=== PATIENT | male | born 1955 | race Caucasian/White ===

== ENCOUNTER 2025-02-28 13:00 | Outpatient (AMB) | payer MEDICARE, OTHER, SELFPAY ==
[2025-02-28 13:04] VITALS: BMI 28.9
--- NOTE | 2025-02-28 13:04 | A.PHYSOV_ITS ---
Vital Signs 02/28/25 13:04 Height 5 ft 8 in Weight 190 lb BMI 28.9 Intake Visit Reasons: NPV Jaylon Ref- spinal stenosis Intake Note: Patient is a 69 year old male here for a new patient office visit. Patient has been referred for chronic lower back pain. Solid State Tester Required: No Allergies No Known Allergies Allergy (Verified 02/28/25 13:06) HPI Comments Details: History of Present Illness The patient is a 69 year old male presenting with left-sided buttock and leg pain. He reports the symptoms began approximately 3 months ago, around December, without a specific injury. He describes nerve pain radiating from his left buttock down the back of his leg to his foot, with sensations of needle sticks. The pain is most severe in the morning, rated as an 8-9 out of 10, and improves with rest. Walking can exacerbate the pain, causing a burning sensation in his leg. The patient did have a fall where he tripped over a tree stump, but it was not perceived as a significant event. The patient is an active walker, covering three miles daily. He does not take medications for the pain, stating Tylenol is ineffective and he has a general dislike for medications. He has tried topical creams, patches, and a heating pad without relief. MRI findings were discussed, revealing mild to moderate degenerative disc disease. 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 I reviewed the referring provider's no prior to consultation. Pain Description - Onset: Approximately 3 months ago. - Location: Left side, originating in the buttock and radiating down the back of the leg to the foot. - Quality: Nerve pain described as needle sticks and burning. - Severity: 8-9/10 in the morning. - Exacerbating Factors: Walking. - Relieving Factors: Sitting down, relaxing, and sometimes movement. - Associated symptoms: Sensation of numbness down the leg. Results - MRI: Findings consistent with mild to moderate degenerative disc disease. 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 [facility] Surgical History H/O vasectomy History of cholecystectomy H/O hernia repair Social History (Updated 02/28/25 @ 13:07 by Soha Yee MA) Alcohol intake: current Alcohol intake frequency: does not drink Patient Tobacco Use Status: Never used Tobacco Use of substances other than those prescribed or required for medical reasons: No Review of Systems Narrative Review of Systems - Neurological: Reports left-sided radiating pain from buttock to foot, characterized as needle sticks and burning. - Reports numbness in the leg, particularly with touch. - Denies any right-sided pain. - Musculoskeletal: Reports low back pain/stiffness, especially in the morning and with forward bending. Physical Exam Exam Exam: Physical Exam - Back: Tenderness to palpation over the left buttock. - No tenderness on the right side. - Range of Motion: Lumbar forward flexion elicits some back pain. - Lumbar extension is non-painful. - Neurological: Motor strength is intact in the lower extremities with foot and thigh movements. - Sensation to light touch on the legs is perceived as symmetrical, though the patient notes numbness when touched. - Seated straight leg raise is negative bilaterally. Vital Signs: BMI result Body Mass Index 28.9 Assessment & Plan Assessment & Plan (1) Lumbar radiculopathy: Code(s): M54.16 - Radiculopathy, lumbar region Category: Medical (2) Lumbar spondylosis: Code(s): M47.816 - Spondylosis without myelopathy or radiculopathy, lumbar region Category: Medical Plan Pain Management - Analgesia: The patient currently takes no medication for his pain, reporting that Tylenol is ineffective. - Current Pain level: Pain is rated as an 8-9/10 in the morning. - Activities of Daily Living: The pain interferes with walking, though he generally feels better when moving. - Aberrant Drug-Related Behaviors: None noted; the patient expresses a dislike for medications. Plan Patient was informed and verbally consented to the use of an ambient scribe for clinic note documentation during this visit. 1. Left Sciatica The patient's symptoms of left-sided radiating pain, numbness, and tingling are attributed to nerve compression from moderate left neuroforaminal stenosis at L4-5, as seen on his recent MRI. Various treatment options were discussed, including conservative management, medications, and injections. Given the patient's aversion to medications, a conservative approach will be initiated. A referral for physical therapy will be placed. If physical therapy does not provide adequate relief, the patient can return to discuss proceeding with a cortisone injection. Discussion Notes I explained to the patient that his symptoms of left leg pain, numbness, and tingling are characteristic of nerve pain, likely originating from his back. 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 I discussed several treatment options, including conservative measures like physical therapy, medications such as anti-inflammatories or Gabapentin, and procedural options like a cortisone injection into the spine. I acknowledged his aversion to medications and supported his preference for a more conservative approach. We agreed to begin with physical therapy, and I informed him that if this does not resolve his symptoms, we can then consider a cortisone injection. I encouraged him to continue exercising and moving, as he has found this provides some relief. Patient Instructions - Begin physical therapy to help strengthen your back and relieve the nerve pain. - Continue to stay active and exercise as tolerated, as you have noted that movement helps your symptoms. - You can use a heating pad for comfort. - If physical therapy does not improve your pain, please follow up in the clinic to discuss other options, like a cortisone injection. - No new medications are being prescribed at this time per your preference. Orders: Orders PT Evaluation and Treatment Today M47.816 - Spondylosis without myelopathy or radiculopathy, lumbar region, M54.16 - Radiculopathy, lumbar region Coding Level of Care Code Tele New Pt Level 4 (62016) Diagnoses Lumbar radiculopathy M54.16 Lumbar spondylosis M47.816
--- OUTSIDE RECORDS SUMMARY | 2025-02-28 16:19 | XMS_ITS | Clinical Summary ---
Author Organization [facility] Address [address] [place] [address] Phone Care Team Providers Care Pattern Attendant Name Role Phone Anne Iyer MD Primary Care Provider [phone] Encounters Date Type Department Care Team Description 01/24/2025 11:23 AM EST - 01/24/2025 11:59 PM EST Hospital Encounter [facility] MRI [address] [place] [phone] Radiculopathy Discharge Disposition: Home or Self Care 01/24/2025 10:12 AM EST - 01/24/2025 11:59 PM EST Hospital Encounter [facility] Xray [address] [place] [phone] Radiculopathy, lumbar region Discharge Disposition: Home or Self Care from Last 3 Months Social History Tobacco Use Types Packs/Day Years Used Date Smoking Tobacco: Never Smokeless Tobacco: Never Alcohol Use Standard Drinks/Week Comments Never 0 (1 standard drink = 0.6 oz pur e alcohol) Sex and Gender Information Value Date Recorded Sex Assigned at Not on file Legal Sex Male 10:56 PM EDT Gender Identity Not on file Sexual Orientation Not on file Plan of Treatment Health Maintenance Due Date Last Done Comments Colorectal Cancer Screening: Colonoscopy 1955 Diabetes: Annual Foot Exam 08/25/1963 Diabetes: Annual Retina Eye Exam 08/25/1963 DTaP,Tdap,and Td Vaccines (1 - Tdap) 1972 Pneumococcal Vaccine: 50+ Years (2 of 2 - PCV20 or PCV21) 12/17/2020 12/18/2019 Falls Risk Assessment 05/26/2022 Hepatitis C Screening 05/26/2022 Social Influencers of Health Screening 05/26/2022 Medicare Annual Wellness Visit 09/26/2023 09/25/2022 Depression Screening 03/10/2024 Diabetes: Annual Urine Albumin-Creatinine Ratio (uACR) 09/23/2024 Diabetes: Blood Sugar Control Test (HGBA1C) 03/24/2025 09/21/2024 COVID-19 Vaccine ( season) 2025 12/08/2024, 12/14/2023, 01/19/2023, Additional history exists Diabetes: Annual GFR (Glomerular Filtration Rate) 09/21/2025 09/21/2024 Hypertension/CHF/CAD Annual BMP Blood Test 09/21/2025 09/21/2024 Cholesterol Screening (Lipid Panel) 09/21/2029 09/21/2024 Zoster Vaccines Completed 02/26/2020, 12/25/2019 RSV Immunization Adult Patients Completed 01/28/2024 Influenza Vaccine Completed 12/08/2024, , 01/17/2023, Additional history exists HIB Vaccines Aged Out No longer eligi ble based on patient's age to complete this topic HPV Vaccines Aged Out No longer eligi ble based on patient's age to complete this topic Hepatitis A Vaccines Aged Out No long er eligible based on patient's age to complete this topic Hepatitis B Vaccines Aged Out No long er eligible based on patient's age to complete this topic IPV Vaccines Aged Out No longer eligi ble based on patient's age to complete this topic MMR Vaccines Aged Out No longer eligi ble based on patient's age to complete this topic Meningococcal ACWY Vaccine Aged Out N o longer eligible based on patient's age to complete this topic Meningococcal B Vaccine Aged Out No l onger eligible based on patient's age to complete this topic RSV Immunization Patients Under 20 months Aged Out No longer eligible based on patient's age to complete this topic Varicella Vaccines Aged Out No longer eligible based on patient's age to complete this topic Procedures Procedure Name Priority Date/Time Associated Diagnosis Comments MR LUMBAR SPINE WO CONTRAST Routine 01/24/2025 12:23 PM EST Radiculopathy XR LUMBAR SPINE 4+ VIEWS Routine 01/24/2025 10:25 AM EST Radiculopathy, lumbar region COMPREHENSIVE METABOLIC PANEL Routine 09/21/2024 9:32 AM EDT Routine general medical examination at a health care facility Screening for lipoid disorders Vitamin D deficiency disease Screening for thyroid disorder Screening for diabetes mellitus High risk medications (not anticoagulants) long-term use HEMOGLOBIN A1C Routine 09/21/2024 9:32 AM EDT Routine general medical examination at a health care facility Screening for lipoid disorders Vitamin D deficiency disease Screening for thyroid disorder Screening for diabetes mellitus High risk medications (not anticoagulants) long-term use LIPID PANEL WITH REFLEX TO DIRECT LDL Routine 09/21/2024 9:32 AM EDT Routine general medical examination at a health care facility Screening for lipoid disorders Vitamin D deficiency disease Screening for thyroid disorder Screening for diabetes mellitus High risk medications (not anticoagulants) long-term use from Last 3 Months or Most Recently Relevant to Health Maintenance Results * MR Lumbar Spine wo Contrast (01/24/2025 12:23 PM EST) Anatomical Region Laterality Modality L-spine, Spine Magnetic Resonan ce 01/25/2025 2:44 PM EST Impressions 01/25/2025 2:49 PM EST Mild lumbar dextroscoliosis. 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 Multilevel degenerative changes as detailed above. -------- FINAL REPORT -------- Dictated By: Barrington Joseph Dictated Date: 01/25/2025 14:44 ET Assigned Physician: Barrington Joseph Reviewed and Electronically Signed By: Barrington Joseph Signed Date: 01/25/2025 14:49 ET Workstation ID: [id number] Transcribed By: Self Edit Transcribed Date: 01/25/2025 14:44 ET Narrative 01/25/2025 2:49 PM EST PROCEDURE: MRI of the lumbar spine without contrast. TECHNIQUE: Multiplanar multisequence MRI of the lumbar spine without intravenous contrast administration. HISTORY: radiculopathy COMPARISON: Radiographs dated 01/24/2025. FINDINGS: Normal appearance of the paraspinous soft tissues. Mild Baastrup's disease. No suspicious marrow infiltrative lesion. Scattered Modic endplate changes. Scattered small Schmorl's nodes, most prominent along the superior L4 endplate. 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 Mild dextroscoliosis centered at L2-3. Normal position of the conus at T12. Lumbar disc levels: L1-2: Marked disc space height loss with moderate endplate irregularity and moderate anterior endplate osteophytes. Small symmetric disc osteophyte complex. Minimal bilateral facet arthropathy with slight widening of the right facet joint suggesting mild hypermobility. No significant spinal or foraminal stenosis. L2-3: Moderate disc space height loss and endplate irregularity slightly eccentric to the left. Mild bilateral facet arthropathy. Mild left lateral recess stenosis. Mild left foraminal stenosis. No significant spinal stenosis. L3-4: Moderate posterior predominant disc space height loss and endplate irregularity. Moderate anterior endplate osteophytes. Small symmetric disc osteophyte complex. Moderate bilateral facet arthropathy with mild left sided ligamentum flavum hypertrophy. Mild spinal stenosis with mild bilateral lateral recess stenosis, left greater than right. Mild bilateral foraminal stenosis. L4-5: Mild posterior predominant disc space height loss and endplate irregularity. Small anterior endplate osteophytes. Small symmetric disc osteophyte complex. Moderate bilateral facet arthropathy and ligamentum flavum hypertrophy. Moderate spinal stenosis. Moderate left and mild right foraminal stenosis. L5-S1: Mild endplate irregularity. Small central focal protrusion. Severe right and moderate left facet arthropathy with slight widening of the left facet joint and mild left ligamentum flavum hypertrophy suggesting mild facet joint hypermobility. Moderate right and mild left lateral recess stenosis. Minimal spinal stenosis. Mild right greater than left foraminal stenosis. Procedure Note Barrington Joseph MD - 01/25/2025 PROCEDURE: MRI of the lumbar spine without contrast. TECHNIQUE: Multiplanar multisequence MRI of the lumbar spine withoutintravenous contrast administration. HISTORY: radiculopathy COMPARISON: Radiographs dated 01/24/2025. FINDINGS: Normal appearance of the paraspinous soft tissues. Mild Baastrup's disease. No suspicious marrow infiltrative lesion.Scattered Modic endplate changes. Scattered small Schmorl's nodes, mostprominent along the superior L4 endplate. Mild diffuse congenitalshortening of the lumbar pedicles. Mild dextroscoliosis centered atL2-3. Normal position of the conus at T12. Lumbar disc levels: L1-2: Marked disc space height loss with moderate endplate irregularityand moderate anterior endplate osteophytes. Small symmetric discosteophyte complex. Minimal bilateral facet arthropathy with slightwidening of the right facet joint suggesting mild hypermobility. Nosignificant spinal or foraminal stenosis. L2-3: Moderate disc space height loss and endplate irregularity slightlyeccentric to the left. Mild bilateral facet arthropathy. Mild leftlateral recess stenosis. Mild left foraminal stenosis. No significantspinal stenosis. L3-4: Moderate posterior predominant disc space height loss and endplateirregularity. Moderate anterior endplate osteophytes. Small symmetricdisc osteophyte complex. Moderate bilateral facet arthropathy with mildleft sided ligamentum flavum hypertrophy. Mild spinal stenosis with mildbilateral lateral recess stenosis, left greater than right. Mildbilateral foraminal stenosis. L4-5: Mild posterior predominant disc space height loss and endplateirregularity. Small anterior endplate osteophytes. Small symmetric discosteophyte complex. Moderate bilateral facet arthropathy and ligamentumflavum hypertrophy. Moderate spinal stenosis. Moderate left and mildright foraminal stenosis. L5-S1: Mild endplate irregularity. Small central focal protrusion.Severe right and moderate left facet arthropathy with slight widening ofthe left facet joint and mild left ligamentum flavum hypertrophysuggesting mild facet joint hypermobility. Moderate right and mild leftlateral recess stenosis. Minimal spinal stenosis. Mild right greaterthan left foraminal stenosis. IMPRESSION: Mild lumbar dextroscoliosis. 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 Multilevel degenerative changes as detailed above. -------- FINAL REPORT -------- Dictated By: Barrington Joseph Dictated Date: 01/25/2025 14:44 ET Assigned Physician: Barrington Joseph Reviewed and Electronically Signed By: Barrington Joseph Signed Date: 01/25/2025 14:49 ET Workstation ID: [id number] Transcribed By: Self Edit Transcribed Date: 01/25/2025 14:44 ET Topherlucio Catherine Iyer MD IMG MRI PROCEDURES Final Result * XR Lumbar Spine 4+ Views (01/24/2025 10:25 AM EST) Anatomical Region Laterality Modality Spine, L-spine Radiographic Meredith ging 01/24/2025 10:2 8 AM EST Impressions 01/24/2025 10:31 AM EST No acute findings. 14 degree dextroscoliosis with the apex at L3. Grade 1, 4.2 mm posterior spondylolisthesis of L2 relative to L3 and grade 1, 4.9 mm posterior spondylolisthesis of L3 relative to L4. Degenerative disc disease is present at L1-2 through L4-5. Scattered facet joint disease. Code 67820 -------- FINAL REPORT -------- Dictated By: Chandrakant Burch Dictated Date: 01/24/2025 10:28 ET Assigned Physician: Chandrakant Burch Reviewed and Electronically Signed By: Chandrakant Burch Signed Date: 01/24/2025 10:31 ET Workstation ID: [id number] Transcribed By: Self Edit Transcribed Date: 01/24/2025 10:28 ET Narrative 01/24/2025 10:31 AM EST HISTORY: The patient is a 69-year-old male with chronic low back pain, nontraumatic. FINDINGS: AP, lateral, right and left oblique, and coned-down spot lateral views of the lumbosacral spine are obtained. The study demonstrates 14 degree dextroscoliosis with the apex at the L3 level. There is grade 1, 4.2 mm posterior spondylolisthesis of L2 relative to L3 and grade 1, 4.9 mm posterior spondylolisthesis of L3 relative to L4. No fracture is seen. There is narrowing of the L1-2, L2-3, L3-4, and L4-5 disc spaces, with vacuum phenomenon at L1-2 and L3-4, consistent with degenerative disc disease. Degenerative osteophytes are present throughout the lumbar spine. Mild facet joint disease is scattered throughout. Procedure Note Chandrakant Burch MD - 01/24/2025 HISTORY: The patient is a 69-year-old male with chronic low back pain,nontraumatic. FINDINGS: AP, lateral, right and left oblique, and coned-down spot lateralviews of the lumbosacral spine are obtained. The study demonstrates 14degree dextroscoliosis with the apex at the L3 level. There is grade 1,4.2 mm posterior spondylolisthesis of L2 relative to L3 and grade 1, 4.9mm posterior spondylolisthesis of L3 relative to L4. No fracture is seen.There is narrowing of the L1-2, L2-3, L3-4, and L4-5 disc spaces, withvacuum phenomenon at L1-2 and L3-4, consistent with degenerative discdisease. Degenerative osteophytes are present throughout the lumbar spine.Mild facet joint disease is scattered throughout. IMPRESSION: No acute findings. 14 degree dextroscoliosis with the apex at L3. Grade 1,4.2 mm posterior spondylolisthesis of L2 relative to L3 and grade 1, 4.9mm posterior spondylolisthesis of L3 relative to L4. Degenerative discdisease is present at L1-2 through L4-5. Scattered facet joint disease. Code 13777 -------- FINAL REPORT -------- Dictated By: Chandrakant Burch Dictated Date: 01/24/2025 10:28 ET Assigned Physician: Chandrakant Burch Reviewed and Electronically Signed By: Chandrakant Burch Signed Date: 01/24/2025 10:31 ET Workstation ID: [id number] Transcribed By: Self Edit Transcribed Date: 01/24/2025 10:28 ET us Aquiles Figueroa SALES REPRESENTATIVE IMG XR PROCEDURES Final Resul t * Lipid panel with reflex to direct LDL (09/21/2024 9:32 AM EDT) Cholesterol 130 0 - 200 mg/dL LAB CHEMISTRY METHOD 09/21/2024 12:27 PM EDT [facility] Triglycerides 71 0 - 150 mg/dL LAB CHEMISTRY METHOD 09/21/2024 12:27 PM EDT [facility] HDL 53 >=40 mg/dL LAB CHEMISTRY METHOD 09/21/2024 12:27 PM EDT [facility] LDL Calculated 63 0 - 100 mg/dL LAB CHEMISTRY METHOD 09/21/2024 12:27 PM EDT [facility] VLDL Cholesterol Kamlesh 14.2 mg/dL LAB CHEMISTRY METHOD 09/21/2024 12:27 PM EDT [facility] Non HDL Chol. (LDL+VLDL) 77 <145 mg/dL LAB CHEMISTRY METHOD 09/21/2024 12:27 PM EDT [facility] Chol/HDL Ratio 2.5 0.0 - 4.4 LAB CHEMISTRY METHOD 09/21/2024 12:27 PM EDT [facility] Blood Venous blood specimen / Unknown Venipuncture / Unknown 09/21/2024 9:32 AM EDT 09/21/2024 10:44 AM EDT Aquiles Figueroa NP LAB BLOOD ORDERABLES Final Re sult Performing Organization Address City/[facility]/ZIP Co de Phone Number [facility] [address] [place] [address], [place] [phone] * (ABNORMAL) Hemoglobin A1c (09/21/2024 9:32 AM EDT) Hemoglobin A1C 6.6(H) <6.5 % LAB CHEMISTRY METHOD 09/21/2024 1:31 PM EDT [facility] Mean Bld Glu Estim. 143 mg/dL LAB CHEMISTRY METHOD 09/21/2024 1:31 PM EDT [facility] Blood Venous blood specimen / Unknown Venipuncture / Unknown 09/21/2024 9:32 AM EDT 09/21/2024 10:47 AM EDT us Aquiles Figueroa NP LAB BLOOD ORDERABLES Final Re sult Performing Organization Address [facility]/ZIP Co de Phone Number [facility] [address] [place] [address], [place] [phone] * (ABNORMAL) Comprehensive metabolic panel (09/21/2024 9:32 AM EDT) Sodium 141 133 - 145 mmol/L LAB CHEMISTRY METHOD 09/21/2024 12:27 PM [facility] Potassium 4.2 3.5 - 5.5 mmol/L LAB CHEMISTRY METHOD 09/21/2024 12:27 PM [facility] Chloride 110 96 - 110 mmol/L LAB CHEMISTRY METHOD 09/21/2024 12:27 PM [facility] CO2 26 21 - 32 mmol/L LAB CHEMISTRY METHOD 09/21/2024 12:27 PM [facility] Anion Gap 5 3 - 11 LAB CHEMISTRY METHOD 09/21/2024 12:27 PM [facility] Glucose 117(H) 70 - 100 mg/dL LAB CHEMISTRY METHOD 09/21/2024 12:27 PM [facility] BUN 23 5 - 25 mg/dL LAB CHEMISTRY METHOD 09/21/2024 12:27 PM [facility] Creatinine 1.19 0.70 - 1.30 mg/dL LAB CHEMISTRY METHOD 09/21/2024 12:27 PM [facility] eGFR 65 >=60 mL/min/1. 73m2 LAB CHEMISTRY METHOD 09/21/2024 12:27 PM [facility] Comment:Calculation based on the Chronic Kidney Disease Epidemiology Collaboration (CKD-EPI) equation refit without adjustment for race. BUN/Creatinine Ratio 19.3 LAB CHEMISTRY METHOD 09/21/2024 12:27 PM [facility] Calcium 9.3 8.5 - 10.5 mg/dL LAB CHEMISTRY METHOD 09/21/2024 12:27 PM [facility] AST (SGOT) 18 10 - 42 unit/L LAB CHEMISTRY METHOD 09/21/2024 12:27 PM [facility] ALT (SGPT) 28 10 - 60 unit/L LAB CHEMISTRY METHOD 09/21/2024 12:27 PM EDT [facility] Alkaline Phosphatase 64 42 - 121 unit/L LAB CHEMISTRY METHOD 09/21/2024 12:27 PM EDT [facility] Total Protein 6.8 6.0 - 8.0 g/dL LAB CHEMISTRY METHOD 09/21/2024 12:27 PM EDT [facility] Albumin 4.3 3.2 - 5.0 g/dL LAB CHEMISTRY METHOD 09/21/2024 12:27 PM EDT [facility] Total Bilirubin 0.4 0.0 - 1.4 mg/dL LAB CHEMISTRY METHOD 09/21/2024 12:27 PM EDT [facility] Blood Venous blood specimen / Unknown Venipuncture / Unknown 09/21/2024 9:32 AM EDT 09/21/2024 10:44 AM EDT us Aquiles Figueroa NP LAB BLOOD ORDERABLES Final Re sult [facility] [address] [place] [address], from Last 3 Months or Most Recently Relevant to Health Maintenance Insurance MEDICARE [facility] Care Teams Pattern Attendant Relationship Specialty Start Date End Date Anne Iyer MD [address] [place] [address] [id number] PCP - General Internal Medicine 09/21/24
--- OUTSIDE RECORDS SUMMARY | 2025-02-28 16:19 | XMS_ITS ---
Author Name [facility] Organization Unknown History of Medication Use Medication Directions Dispensed Refills Start Date End Date Stat us ciprofloxacin-dexAME THasone (CIPRODEX) 0.3-0.1 % otic suspension Administer 4 drops into both ears 2 (two) times a day. 02/16/2024 02/24/2024 active amLODIPine-benazepri l (LOTREL) 5-10 mg per capsule TAKE 1 CAPSULE BY MOUTH EVERY DAY for 90 active metFORMIN (GLUCOPHAGE) 500 MG tablet 1 tablet with a meal Orally twice a day for 90 days active Multiple Vitamins-Minerals (Multi Complete) Cap Take by mouth. active omega-3 fatty acids (FISH OIL) 1000 MG Cap capsule 1 capsule. active simvastatin (ZOCOR) 20 MG tablet TAKE 1 TABLET BY MOUTH EVERY DAY IN THE EVENING for 90 active tamsulosin (FLOMAX) 0.4 MG capsule TAKE 1 CAPSULE BY MOUTH EVERY DAY for 90 active Problems Problem Status Onset Date Problem Type Date of Resolution Source Sensorineural hearing loss, bilateral active EncounterDiagnosisAct [facility] Acute diffuse otitis externa of left ear active EncounterDiagnosisAct [facility] Immunizations Vaccine Date Source Lot Number Status Influenza High-Dose Quadriva lent,(FLUZONE HIGH-DOSE), Perservative Free IM 0.7 mL 65 years and older 01/13/2021 [id number] completed Encounters Encounter Type Encounter Reason Primary Diagnosis Location Date Ambulatory Hearing Loss Hearing Loss [facility] 03/15/2024 Ambulatory Diffuse otitis externa, left ear Diffuse otitis externa, left ear [facility] 02/16/2024 Ambulatory [facility] 01/06/2024 Care Team Organization Name Specialty Phone Email Start Date End Da te [facility] 07/03/2024 [facility] 04/11/2024 [facility] 02/19/2024 05/26/2024 [facility] 02/16/2024 [facility] 01/22/2024 [facility] 09/25/2023 [facility] 02/19/2023 [facility] 07/15/2022
--- OUTSIDE RECORDS SUMMARY | 2025-02-28 16:19 | XMS_ITS | Patient Health Record ---
Author Organization [facility] [address] Address [address] [place] [address] Care Team Providers Care Export Sales Assistant Name Role Phone BAPTISTE, CELSOPRECIOUS Primary Care Provider YANICK HERNANDEZ Unavailable [phone] Allergies No Known Allergies Results Component Value Reference Range Flag Notes URINALYSIS WITH REFLEX MICRO SCOPIC Reviewed date:09/21/2024 12:20:37 PM Interpretation: Performing Lab: Notes/Report: Specific [place] Urine 1.021 1.003-1.030 pH, Urine 5.5 5.0-8.0 pH Leukocytes, Urine Negative Negative Nitrite, Urine Negative Negative Protein, Urine Negative <=Trace mg/dL Glucose, Urine Negative Negative mg/dL Ketones, Urine Negative Negative mg/dL Urobilinogen, Urine 0.2 0.2-1.0 mg/dL Bilirubin, Urine Negative Negative Blood, Urine Negative Negative HEMOGLOBIN A1C Reviewed date:09/21/2024 02:02:27 PM Interpretation: Performing Lab: Notes/Report: Hemoglobin A1C 6.6 <6.5 % H Mean Bld Glu Estim. 143 THYROID STIMULATING HORMONE WITH REFLEX TO FREE T4 AND FREE T3 Reviewed date:09/21/2024 01:08:55 PM Interpretation: Performing Lab: Notes/Report: TSH 1.38 0.40-4.00 mcIU/mL COMPREHENSIVE METABOLIC PANE L Reviewed date:09/21/2024 12:46:32 PM Interpretation: Performing Lab: Notes/Report: Sodium 141 133-145 mmol/L Potassium 4.2 3.5-5.5 mmol/L Chloride 110 96-110 mmol/L CO2 26 21-32 mmol/L Anion Gap 5 3-11 Glucose 117 70-100 mg/dL H BUN 23 5-25 mg/dL Creatinine 1.19 0.70-1.30 mg/dL eGFR 65 >=60 mL/min/1.73m2 Calcul ation based on the Chronic Kidney Disease Epidemiology Collaboration (CKD-EPI) equation refit without adjustment for race. BUN/Creatinine Ratio 19.3 Calcium 9.3 8.5-10.5 mg/dL AST (SGOT) 18 10-42 unit/L ALT (SGPT) 28 10-60 unit/L Alkaline Phosphatase 64 42-121 unit/L Total Protein 6.8 6.0-8.0 g/dL Albumin 4.3 3.2-5.0 g/dL Total Bilirubin 0.4 0.0-1.4 mg/dL VITAMIN D 25 HYDROXY Reviewed date:09/21/2024 01:08:55 PM Interpretation: Performing Lab: Notes/Report: Vit D, 25-Hydroxy 42.5 30.0-80.0 ng/mL LIPID PANEL WITH REFLEX TO D IRECT LDL Reviewed date:09/21/2024 12:46:32 PM Interpretation: Performing Lab: Notes/Report: Cholesterol 130 0-200 mg/dL Triglycerides 71 0-150 mg/dL HDL 53 >=40 mg/dL LDL Calculated 63 0-100 mg/dL VLDL Cholesterol Kamlesh 14.2 Non HDL Chol. (LDL+VLDL) 77 <145 mg/dL Chol/HDL Ratio 2.5 0.0-4.4 CBC WITH AUTO DIFFERENTIAL Reviewed date:09/21/2024 12:20:37 PM Interpretation: Performing Lab: Notes/Report: WBC 6.5 4.8-10.8 K/mcL RBC 4.50 4.50-5.50 M/mcL Hemoglobin 13.9 13.5-17.5 g/dL Hematocrit 41.8 42.0-54.0 % L MCV 92.9 79.0-98.0 FL MCH 30.9 27.0-32.0 pcg MCHC 33.3 32.0-37.0 g/dL RDW 13.3 11.0-15.0 % Platelets 245 130-400 K/mcL MPV 10.5 7.0-11.0 FL NRBC 0.0 <1.0 % NRBC Absolute 0.00 <0.10 K/mcL Neutrophils Relative 67.5 Lymphocytes Relative 22.8 Monocytes Relative 7.3 Eosinophils Relative 1.6 Basophils Relative 0.5 Immature Granulocytes Relative 0.3 Neutrophils Absolute 4.36 1.50-7.00 K/mcL Lymphocytes Absolute 1.47 1.00-5.00 K/mcL Monocytes Absolute 0.47 0.20-1.00 K/mcL Eosinophils Absolute 0.10 0.00-0.50 K/mcL Basophils Absolute 0.03 0.00-0.20 K/mcL Immature Granulocytes Absolute 0.02 0.00-0.03 K/mcL MR LUMBAR SPINE WO CONTRAST Reviewed date:01/26/2025 11:33:15 AM Interpretation: Performing Lab: Notes/Report: See Note [facility], a member of [employer] PROCEDURE: MRI of the lumbar spine without [...] Mild right greater than left foraminal stenosis. IMPRESSION: Mild lumbar dextroscoliosis. 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 Multilevel degenerative changes as detailed above. -------- FINAL REPORT -------- Dictated By: Barrington Joseph Dictated Date: 01/25/2025 14:44 ET Assigned Physician: Barrington Joseph Reviewed and Electronically Signed By: Barrington Joseph Signed Date: 01/25/2025 14:49 ET Workstation ID: [id number] Transcribed By: Self Edit Transcribed Date: 01/25/2025 14:44 ET XR LUMBAR SPINE 4+ VIEWS Reviewed date:01/24/2025 11:29:18 AM Interpretation: Performing Lab: Notes/Report: See Note [facility], a member of [employer] HISTORY: The patient is a 69-year-old male [...] Mild facet joint disease is scattered throughout. IMPRESSION: No acute findings. 14 degree dextroscoliosis with the apex at L3. Grade 1, 4.2 mm posterior spondylolisthesis of L2 relative to L3 and grade 1, 4.9 mm posterior spondylolisthesis of L3 relative to L4. Degenerative disc disease is present at L1-2 through L4-5. Scattered facet joint disease. Code 87950 -------- FINAL REPORT -------- Dictated By: Chandrakant Burch Dictated Date: 01/24/2025 10:28 ET Assigned Physician: Chandrakant Burch Reviewed and Electronically Signed By: Chandrakant Burch Signed Date: 01/24/2025 10:31 ET Workstation ID: [id number] Transcribed By: Self Edit Transcribed Date: 01/24/2025 10:28 ET PPC Hemoglobin A1C Reviewed date:01/24/2025 02:48:12 PM Interpretation:6.4% Performing Lab: Notes/Report: 6.4% Reason For Referral Reason Pt needing referral He has multilevel degenerative changes stenosis and some disc issues Diagnosis 1 Spinal stenosis, uns pecified spinal region (M48.00) Referral Organization [facility] [address] Referring Provider First Name SUSANNAH Referring Provider Last Name EMILE Referring Provider Speciality Internal M edicine Referred Provider Alejandro Romero Referred Provider Specialty Physiotherap y General Notes Alejandro Romero Physioth erapy , phone - [phone], , fax- [phone] Clinical Notes Katherine Quinteros 02/01 09:54:42 AM EST >, faxed with x-ray and MRI results, Aminah Adame 02/17/2025 01:11:51 PM EST > Scheduled for 02/28 at 1 pm. pt aware Referral Priority Routine Medications Medication SIG (Take, Route, Frequency, Duration) Notes Start Date End Date Status Farxiga 5 MG Tablet 1 tablet Orally Once a day; Duration: 90 days 05/20/2024 Not-Takin g metFORMIN HCl 500 MG Tablet 1 tablet with a meal Orally twice a day; Duration: 90 days 01/21/2025 Active Fish Oil 1000 MG Capsule 1 capsule Orall y once daily Not-Taking Tamsulosin HCl 0.4 MG Capsule TAKE 1 CAPSULE BY MOUTH EVERY DAY; Duration: 90 Active Multi Complete - Capsule as directed Orally Not-Taking metFORMIN HCl 500 MG Tablet TAKE 1 TABLET BY MOUTH TWICE A DAY WITH MEALS; Duration: 90 Active amLODIPine Besy-Benazepril HCl 5-10 MG Capsule TAKE 1 CAPSULE BY MOUTH EVERY DAY; Duration: 90 Active Simvastatin 20 MG Tablet TAKE 1 TABLET B Y MOUTH EVERY DAY IN THE EVENING; Duration: 90 Active Immunizations Vaccine Route Administration Date Status Comme nts Influenza, high dose seasonal Unknown 01/13/2021 Admini stered Pfizer Covid-19 Vaccine Unknown 02/03/2021 Administered Social History Tobacco Use: Social History Observation Description Date Details (start date - stop date) Never Smoker NA - NA Social History Drugs/Alcohol: Social Info Question Answer Notes Drugs Have you used drugs other than those for medical reasons in the past 12 months? No Tobacco Use: Social Info Question Answer Notes Tobacco Use/Smoking Are you a nonsmoker Additional Details Category Social Info Options Details Drugs/Alcohol: Do you smoke marijuana? De nies Do you drink alcohol? No Problems Problem Type SNOMED Code ICD Code Onset Dates Problem Status W/U Status Risk Notes Problem Information temporarily unavailable Type 2 diabetes mellitus without complications (E11.9) Active confirmed Problem Information temporarily unavailable Other obesity due to excess calories (E66.09) Active confirmed Problem Information temporarily unavailable Hyperlipidemia, unspecified (E78.5) Active confirmed Problem Information temporarily unavailable Essential (primary) hypertension (I10) Active confirmed Problem Information temporarily unavailable Gastro-esophageal reflux disease without esophagitis (K21.9) Active confirmed Problem Information temporarily unavailable Encounter for screening for lipoid disorders (Z13.220) Active confirmed Problem Information temporarily unavailable Type 2 diabetes mellitus without complications (E11.9) Active confirmed Problem Information temporarily unavailable Hyperlipidemia, unspecified (E78.5) Active confirmed Problem Information temporarily unavailable Essential (primary) hypertension (I10) Active confirmed Problem Information temporarily unavailable Benign prostatic hyperplasia without lower urinary tract symptoms (N40.0) Active confirmed Problem Information temporarily unavailable Adult general medical exam (Z00.00) Active confirmed Problem Information temporarily unavailable Hypothyroidism, unspecified type (E03.9) Active confirmed Problem Information temporarily unavailable Vitamin D deficiency (E55.9) Active confirmed Problem Information temporarily unavailable Spinal stenosis, unspecified spinal region (M48.00) Active confirmed Problem Information temporarily unavailable Diabetes mellitus screening (Z13.1) Active confirmed Problem Information temporarily unavailable Body mass index [BMI] 31.0-31.9, adult (Z68.31) Active confirmed Problem Information temporarily unavailable Avitaminosis D (E55.9) Active confirmed Problem Information temporarily unavailable Encounter for screening for endocrine disorder (Z13.29) Active confirmed Problem Information temporarily unavailable Non-recurrent acute suppurative otitis media of left ear without spontaneous rupture of tympanic membrane (H66.002) Active confirmed Problem Information temporarily unavailable Left lumbar radiculopathy (M54.16) Active confirmed Problem Information temporarily unavailable Sensorineural hearing loss (SNHL) of left ear with unrestricted hearing of right ear (H90.42) Active confirmed Vital Signs Heart Rate 94 /min 01/24/2025 Oximetry 99 % 01/24/2025 Blood pressure diastolic 80 mm Hg 01/24/2025 Height 66 in 01/24/2025 Blood pressure systolic 132 mm Hg 01/24/2025 Weight 191 lbs 01/24/2025 BMI 30.82 kg/m2 01/24/2025 Encounters Encounter Location Date Provider Diagnosis [facility] [address] [place] [address] 05/28/2024 YANICK HERNANDEZ [facility] [address] [facility] [address] [place] [address] 06/08/2024 SUSANNAH BAPTISTE [facility] [address] [place] [address] 01/24/2025 YANICKVICKI HERNANDEZ [facility] [address] [place] [address] 01/24/2025 SUSANNAH BAPTISTE Left lumbar radiculopathy M54.[address] [facility] [address] [place] [address] 01/31/2025 YANICK HERNANDEZ [facility] [address] [place] [address] 05/20/2024 YANICK HERNANDEZ Essential (primary) hypertension I10 ; Hyperlipidemia, unspecified E78.5 ; Type 2 diabetes mellitus without complications E11.9 ; Other obesity due to excess calories E66.09 ; Body mass index [BMI] 31.0-31.9, adult Z68.31 ; Benign prostatic hyperplasia without lower urinary tract symptoms N40.0 ; Otalgia, left ear H92.02 and Sensorineural hearing loss (SNHL) of left ear with unrestricted hearing of right ear H90.42 [facility] [address] [place] [address] 09/21/2024 YANICK HERNANDEZ Essential (primary) hypertension I10 ; Hyperlipidemia, unspecified E78.5 ; Type 2 diabetes mellitus without complications E11.9 ; Other obesity due to excess calories E66.09 ; Body mass index [BMI] 31.0-31.9, adult Z68.31 ; Benign prostatic hyperplasia without lower urinary tract symptoms N40.0 ; Otalgia, left ear H92.02 ; Sensorineural hearing loss (SNHL) of left ear with unrestricted hearing of right ear H90.42 and Encounter for examination of blood pressure without abnormal findings Z01.30 [facility] [address] [place] [id number] 01/24/2025 YANICK HERNANDEZ Annual physical exam Z00.00 ; Encounter for screening for depression Z13.31 ; Encounter for screening for other disorder Z13.89 ; Advanced directives, counseling/discussion Z71.89 ; Essential (primary) hypertension I10 ; Hyperlipidemia, unspecified E78.5 ; Type 2 diabetes mellitus without complications E11.9 ; Other obesity due to excess calories E66.09 ; Body mass index [BMI] 31.0-31.9, adult Z68.31 ; Benign prostatic hyperplasia without lower urinary tract symptoms N40.0 ; Sensorineural hearing loss (SNHL) of left ear with unrestricted hearing of right ear H90.42 and Left lumbar radiculopathy M54.16 Assessments Encounter Date Diagnosis (ICD Code) Assessment Notes Treatment Notes Treatment Clinical Notes Section Notes 05/20/2024 Essential (primary) hypertension (ICD-10 - I10) Acute Concerns/Problem List: 05/20/2024 A1c today is 6.4, discussed switching from Metformin to Farxiga. For cardio and renal protection _update labs prior to next visit Of note, some information is being carried forward from prior records for informational purposes only and is being cited so that efficiency, safety and quality of the patient's care is not compromised This note was prepared using voice recognition software and direct typing Please excuse inadvertent med peds or typing errors, or uncorrected word substitutions Although every attempt has been made by the provider to proofread this document, occasional misspellings and typographical errors may still be present Due to the previous pandemic, and the use of personal protective equipment (PPE) This may decrease voice recognition accuracy Inadvertent med peds errors may occur 09/21/2024 Essential (primary) hypertension (ICD-10 - I10) Acute Concerns/Problem List: 09/21/2024 Per request will remain on metformin monotherapy _update labs this morning please Will follow glycemic index Diabetic eye exam upcoming months Will see him back in January for Medicare visit Proxy form returned today, MOLST form pending Of note, some information is being carried forward from prior records for informational purposes only and is being cited so that efficiency, safety and quality of the patient's care is not compromised This note was prepared using voice recognition software and direct typing Please excuse inadvertent med peds or typing errors, or uncorrected word substitutions Although every attempt has been made by the provider to proofread this document, occasional misspellings and typographical errors may still be present Due to the previous pandemic, and the use of personal protective equipment (PPE) This may decrease voice recognition accuracy Inadvertent med peds errors may occur 01/24/2025 Encounter for screening for depression (ICD-10 - Z13.31) #Acute Concerns/Problem List: 01/24/2025 Will get lumbar spine films Suspect discogenic source, will likely need MRI Glycemic control is excellent, On metformin monotherapy MOLST/HCP filed Of note, some information is being carried forward from prior records for informational purposes only and is being cited so that efficiency, safety and quality of the patient's care is not compromised This note was prepared using voice recognition software and direct typing Please excuse inadvertent med peds or typing errors, or uncorrected word substitutions Although every attempt has been made by the provider to proofread this document, occasional misspellings and typographical errors may still be present Due to the previous pandemic, and the use of personal protective equipment (PPE) This may decrease voice recognition accuracy Inadvertent med peds errors may occurba 01/24/2025 Annual physical exam (ICD-10 - Z00.00) #Acute Concerns/Problem List: 01/24/2025 Will get lumbar spine films Suspect discogenic source, will likely need MRI Glycemic control is excellent, On metformin monotherapy MOLST/HCP filed Of note, some information is being carried forward from prior records for informational purposes only and is being cited so that efficiency, safety and quality of the patient's care is not compromised This note was prepared using voice recognition software and direct typing Please excuse inadvertent med peds or typing errors, or uncorrected word substitutions Although every attempt has been made by the provider to proofread this document, occasional misspellings and typographical errors may still be present Due to the previous pandemic, and the use of personal protective equipment (PPE) This may decrease voice recognition accuracy Inadvertent med peds errors may occurba 01/24/2025 Left lumbar radiculopathy (ICD-10 - M54.16) 09/21/2024 Hyperlipidemia, unspecified (ICD-10 - E78.5) Acute Concerns/Problem List: 09/21/2024 Per request will remain on metformin monotherapy _update labs this morning please Will follow glycemic index Diabetic eye exam upcoming months Will see him back in January for Medicare visit Proxy form returned today, MOLST form pending Of note, some information is being carried forward from prior records for informational purposes only and is being cited so that efficiency, safety and quality of the patient's care is not compromised This note was prepared using voice recognition software and direct typing Please excuse inadvertent med peds or typing errors, or uncorrected word substitutions Although every attempt has been made by the provider to proofread this document, occasional misspellings and typographical errors may still be present Due to the previous pandemic, and the use of personal protective equipment (PPE) This may decrease voice recognition accuracy Inadvertent med peds errors may occur 01/24/2025 Encounter for screening for other disorder (ICD-10 - Z13.89) #Acute Concerns/Problem List: 01/24/2025 Will get lumbar spine films Suspect discogenic source, will likely need MRI Glycemic control is excellent, On metformin monotherapy MOLST/HCP filed Of note, some information is being carried forward from prior records for informational purposes only and is being cited so that efficiency, safety and quality of the patient's care is not compromised This note was prepared using voice recognition software and direct typing Please excuse inadvertent med peds or typing errors, or uncorrected word substitutions Although every attempt has been made by the provider to proofread this document, occasional misspellings and typographical errors may still be present Due to the previous pandemic, and the use of personal protective equipment (PPE) This may decrease voice recognition accuracy Inadvertent med peds errors may occurba 05/20/2024 Hyperlipidemia, unspecified (ICD-10 - E78.5) Acute Concerns/Problem List: 05/20/2024 A1c today is 6.4, discussed switching from Metformin to Farxiga. For cardio and renal protection _update labs prior to next visit Of note, some information is being carried forward from prior records for informational purposes only and is being cited so that efficiency, safety and quality of the patient's care is not compromised This note was prepared using voice recognition software and direct typing Please excuse inadvertent med peds or typing errors, or uncorrected word substitutions Although every attempt has been made by the provider to proofread this document, occasional misspellings and typographical errors may still be present Due to the previous pandemic, and the use of personal protective equipment (PPE) This may decrease voice recognition accuracy Inadvertent med peds errors may occur 05/20/2024 Type 2 diabetes mellitus without complications (ICD-10 - E11.9) Acute Concerns/Problem List: 05/20/2024 A1c today is 6.4, discussed switching from Metformin to Farxiga. For cardio and renal protection _update labs prior to next visit Of note, some information is being carried forward from prior records for informational purposes only and is being cited so that efficiency, safety and quality of the patient's care is not compromised This note was prepared using voice recognition software and direct typing Please excuse inadvertent med peds or typing errors, or uncorrected word substitutions Although every attempt has been made by the provider to proofread this document, occasional misspellings and typographical errors may still be present Due to the previous pandemic, and the use of personal protective equipment (PPE) This may decrease voice recognition accuracy Inadvertent med peds errors may occur 09/21/2024 Type 2 diabetes mellitus without complications (ICD-10 - E11.9) Acute Concerns/Problem List: 09/21/2024 Per request will remain on metformin monotherapy _update labs this morning please Will follow glycemic index Diabetic eye exam upcoming months Will see him back in January for Medicare visit Proxy form returned today, MOLST form pending Of note, some information is being carried forward from prior records for informational purposes only and is being cited so that efficiency, safety and quality of the patient's care is not compromised This note was prepared using voice recognition software and direct typing Please excuse inadvertent med peds or typing errors, or uncorrected word substitutions Although every attempt has been made by the provider to proofread this document, occasional misspellings and typographical errors may still be present Due to the previous pandemic, and the use of personal protective equipment (PPE) This may decrease voice recognition accuracy Inadvertent med peds errors may occur 01/24/2025 Advanced directives, counseling/discus paulo (ICD-10 - Z71.89) #Acute Concerns/Problem List: 01/24/2025 Will get lumbar spine films Suspect discogenic source, will likely need MRI Glycemic control is excellent, On metformin monotherapy MOLST/HCP filed Of note, some information is being carried forward from prior records for informational purposes only and is being cited so that efficiency, safety and quality of the patient's care is not compromised This note was prepared using voice recognition software and direct typing Please excuse inadvertent med peds or typing errors, or uncorrected word substitutions Although every attempt has been made by the provider to proofread this document, occasional misspellings and typographical errors may still be present Due to the previous pandemic, and the use of personal protective equipment (PPE) This may decrease voice recognition accuracy Inadvertent med peds errors may occurba 01/24/2025 Essential (primary) hypertension (ICD-10 - I10) #Acute Concerns/Problem List: 01/24/2025 Will get lumbar spine films Suspect discogenic source, will likely need MRI Glycemic control is excellent, On metformin monotherapy MOLST/HCP filed Of note, some information is being carried forward from prior records for informational purposes only and is being cited so that efficiency, safety and quality of the patient's care is not compromised This note was prepared using voice recognition software and direct typing Please excuse inadvertent med peds or typing errors, or uncorrected word substitutions Although every attempt has been made by the provider to proofread this document, occasional misspellings and typographical errors may still be present Due to the previous pandemic, and the use of personal protective equipment (PPE) This may decrease voice recognition accuracy Inadvertent med peds errors may occurba 09/21/2024 Other obesity due to excess calories (ICD-10 - E66.09) Acute Concerns/Problem List: 09/21/2024 Per request will remain on metformin monotherapy _update labs this morning please Will follow glycemic index Diabetic eye exam upcoming months Will see him back in January for Medicare visit Proxy form returned today, MOLST form pending Of note, some information is being carried forward from prior records for informational purposes only and is being cited so that efficiency, safety and quality of the patient's care is not compromised This note was prepared using voice recognition software and direct typing Please excuse inadvertent med peds or typing errors, or uncorrected word substitutions Although every attempt has been made by the provider to proofread this document, occasional misspellings and typographical errors may still be present Due to the previous pandemic, and the use of personal protective equipment (PPE) This may decrease voice recognition accuracy Inadvertent med peds errors may occur 05/20/2024 Other obesity due to excess calories (ICD-10 - E66.09) Acute Concerns/Problem List: 05/20/2024 A1c today is 6.4, discussed switching from Metformin to Farxiga. For cardio and renal protection _update labs prior to next visit Of note, some information is being carried forward from prior records for informational purposes only and is being cited so that efficiency, safety and quality of the patient's care is not compromised This note was prepared using voice recognition software and direct typing Please excuse inadvertent med peds or typing errors, or uncorrected word substitutions Although every attempt has been made by the provider to proofread this document, occasional misspellings and typographical errors may still be present Due to the previous pandemic, and the use of personal protective equipment (PPE) This may decrease voice recognition accuracy Inadvertent med peds errors may occur 05/20/2024 Body mass index [BMI] 31.0-31.9, adult (ICD-10 - Z68.31) Acute Concerns/Problem List: 05/20/2024 A1c today is 6.4, discussed switching from Metformin to Farxiga. For cardio and renal protection _update labs prior to next visit Of note, some information is being carried forward from prior records for informational purposes only and is being cited so that efficiency, safety and quality of the patient's care is not compromised This note was prepared using voice recognition software and direct typing Please excuse inadvertent med peds or typing errors, or uncorrected word substitutions Although every attempt has been made by the provider to proofread this document, occasional misspellings and typographical errors may still be present Due to the previous pandemic, and the use of personal protective equipment (PPE) This may decrease voice recognition accuracy Inadvertent med peds errors may occur 09/21/2024 Body mass index [BMI] 31.0-31.9, adult (ICD-10 - Z68.31) Acute Concerns/Problem List: 09/21/2024 Per request will remain on metformin monotherapy _update labs this morning please Will follow glycemic index Diabetic eye exam upcoming months Will see him back in January for Medicare visit Proxy form returned today, MOLST form pending Of note, some information is being carried forward from prior records for informational purposes only and is being cited so that efficiency, safety and quality of the patient's care is not compromised This note was prepared using voice recognition software and direct typing Please excuse inadvertent med peds or typing errors, or uncorrected word substitutions Although every attempt has been made by the provider to proofread this document, occasional misspellings and typographical errors may still be present Due to the previous pandemic, and the use of personal protective equipment (PPE) This may decrease voice recognition accuracy Inadvertent med peds errors may occur 01/24/2025 Hyperlipidemia, unspecified (ICD-10 - E78.5) #Acute Concerns/Problem List: 01/24/2025 Will get lumbar spine films Suspect discogenic source, will likely need MRI Glycemic control is excellent, On metformin monotherapy MOLST/HCP filed Of note, some information is being carried forward from prior records for informational purposes only and is being cited so that efficiency, safety and quality of the patient's care is not compromised This note was prepared using voice recognition software and direct typing Please excuse inadvertent med peds or typing errors, or uncorrected word substitutions Although every attempt has been made by the provider to proofread this document, occasional misspellings and typographical errors may still be present Due to the previous pandemic, and the use of personal protective equipment (PPE) This may decrease voice recognition accuracy Inadvertent med peds errors may occurba 01/24/2025 Type 2 diabetes mellitus without complications (ICD-10 - E11.9) #Acute Concerns/Problem List: 01/24/2025 Will get lumbar spine films Suspect discogenic source, will likely need MRI Glycemic control is excellent, On metformin monotherapy MOLST/HCP filed Of note, some information is being carried forward from prior records for informational purposes only and is being cited so that efficiency, safety and quality of the patient's care is not compromised This note was prepared using voice recognition software and direct typing Please excuse inadvertent med peds or typing errors, or uncorrected word substitutions Although every attempt has been made by the provider to proofread this document, occasional misspellings and typographical errors may still be present Due to the previous pandemic, and the use of personal protective equipment (PPE) This may decrease voice recognition accuracy Inadvertent med peds errors may occurba 09/21/2024 Benign prostatic hyperplasia without lower urinary tract symptoms (ICD-10 - N40.0) Acute Concerns/Problem List: 09/21/2024 Per request will remain on metformin monotherapy _update labs this morning please Will follow glycemic index Diabetic eye exam upcoming months Will see him back in January for Medicare visit Proxy form returned today, MOLST form pending Of note, some information is being carried forward from prior records for informational purposes only and is being cited so that efficiency, safety and quality of the patient's care is not compromised This note was prepared using voice recognition software and direct typing Please excuse inadvertent med peds or typing errors, or uncorrected word substitutions Although every attempt has been made by the provider to proofread this document, occasional misspellings and typographical errors may still be present Due to the previous pandemic, and the use of personal protective equipment (PPE) This may decrease voice recognition accuracy Inadvertent med peds errors may occur 05/20/2024 Benign prostatic hyperplasia without lower urinary tract symptoms (ICD-10 - N40.0) Acute Concerns/Problem List: 05/20/2024 A1c today is 6.4, discussed switching from Metformin to Farxiga. For cardio and renal protection _update labs prior to next visit Of note, some information is being carried forward from prior records for informational purposes only and is being cited so that efficiency, safety and quality of the patient's care is not compromised This note was prepared using voice recognition software and direct typing Please excuse inadvertent med peds or typing errors, or uncorrected word substitutions Although every attempt has been made by the provider to proofread this document, occasional misspellings and typographical errors may still be present Due to the previous pandemic, and the use of personal protective equipment (PPE) This may decrease voice recognition accuracy Inadvertent med peds errors may occur 05/20/2024 Otalgia, left ear (ICD-10 - H92.02) Acute Concerns/Problem List: 05/20/2024 A1c today is 6.4, discussed switching from Metformin to Farxiga. For cardio and renal protection _update labs prior to next visit Of note, some information is being carried forward from prior records for informational purposes only and is being cited so that efficiency, safety and quality of the patient's care is not compromised This note was prepared using voice recognition software and direct typing Please excuse inadvertent med peds or typing errors, or uncorrected word substitutions Although every attempt has been made by the provider to proofread this document, occasional misspellings and typographical errors may still be present Due to the previous pandemic, and the use of personal protective equipment (PPE) This may decrease voice recognition accuracy Inadvertent med peds errors may occur 09/21/2024 Otalgia, left ear (ICD-10 - H92.02) Acute Concerns/Problem List: 09/21/2024 Per request will remain on metformin monotherapy _update labs this morning please Will follow glycemic index Diabetic eye exam upcoming months Will see him back in January for Medicare visit Proxy form returned today, MOLST form pending Of note, some information is being carried forward from prior records for informational purposes only and is being cited so that efficiency, safety and quality of the patient's care is not compromised This note was prepared using voice recognition software and direct typing Please excuse inadvertent med peds or typing errors, or uncorrected word substitutions Although every attempt has been made by the provider to proofread this document, occasional misspellings and typographical errors may still be present Due to the previous pandemic, and the use of personal protective equipment (PPE) This may decrease voice recognition accuracy Inadvertent med peds errors may occur 01/24/2025 Other obesity due to excess calories (ICD-10 - E66.09) #Acute Concerns/Problem List: 01/24/2025 Will get lumbar spine films Suspect discogenic source, will likely need MRI Glycemic control is excellent, On metformin monotherapy MOLST/HCP filed Of note, some information is being carried forward from prior records for informational purposes only and is being cited so that efficiency, safety and quality of the patient's care is not compromised This note was prepared using voice recognition software and direct typing Please excuse inadvertent med peds or typing errors, or uncorrected word substitutions Although every attempt has been made by the provider to proofread this document, occasional misspellings and typographical errors may still be present Due to the previous pandemic, and the use of personal protective equipment (PPE) This may decrease voice recognition accuracy Inadvertent med peds errors may occurba 01/24/2025 Body mass index [BMI] 31.0-31.9, adult (ICD-10 - Z68.31) #Acute Concerns/Problem List: 01/24/2025 Will get lumbar spine films Suspect discogenic source, will likely need MRI Glycemic control is excellent, On metformin monotherapy MOLST/HCP filed Of note, some information is being carried forward from prior records for informational purposes only and is being cited so that efficiency, safety and quality of the patient's care is not compromised This note was prepared using voice recognition software and direct typing Please excuse inadvertent med peds or typing errors, or uncorrected word substitutions Although every attempt has been made by the provider to proofread this document, occasional misspellings and typographical errors may still be present Due to the previous pandemic, and the use of personal protective equipment (PPE) This may decrease voice recognition accuracy Inadvertent med peds errors may occurba 09/21/2024 Sensorineural hearing loss (SNHL) of left ear with unrestricted hearing of right ear (ICD-10 - H90.42) Acute Concerns/Problem List: 09/21/2024 Per request will remain on metformin monotherapy _update labs this morning please Will follow glycemic index Diabetic eye exam upcoming months Will see him back in January for Medicare visit Proxy form returned today, MOLST form pending Of note, some information is being carried forward from prior records for informational purposes only and is being cited so that efficiency, safety and quality of the patient's care is not compromised This note was prepared using voice recognition software and direct typing Please excuse inadvertent med peds or typing errors, or uncorrected word substitutions Although every attempt has been made by the provider to proofread this document, occasional misspellings and typographical errors may still be present Due to the previous pandemic, and the use of personal protective equipment (PPE) This may decrease voice recognition accuracy Inadvertent med peds errors may occur 05/20/2024 Sensorineural hearing loss (SNHL) of left ear with unrestricted hearing of right ear (ICD-10 - H90.42) Acute Concerns/Problem List: 05/20/2024 A1c today is 6.4, discussed switching from Metformin to Farxiga. For cardio and renal protection _update labs prior to next visit Of note, some information is being carried forward from prior records for informational purposes only and is being cited so that efficiency, safety and quality of the patient's care is not compromised This note was prepared using voice recognition software and direct typing Please excuse inadvertent med peds or typing errors, or uncorrected word substitutions Although every attempt has been made by the provider to proofread this document, occasional misspellings and typographical errors may still be present Due to the previous pandemic, and the use of personal protective equipment (PPE) This may decrease voice recognition accuracy Inadvertent med peds errors may occur 09/21/2024 Encounter for examination of blood pressure without abnormal findings (ICD-10 - Z01.30) Acute Concerns/Problem List: 09/21/2024 Per request will remain on metformin monotherapy _update labs this morning please Will follow glycemic index Diabetic eye exam upcoming months Will see him back in January for Medicare visit Proxy form returned today, MOLST form pending Of note, some information is being carried forward from prior records for informational purposes only and is being cited so that efficiency, safety and quality of the patient's care is not compromised This note was prepared using voice recognition software and direct typing Please excuse inadvertent med peds or typing errors, or uncorrected word substitutions Although every attempt has been made by the provider to proofread this document, occasional misspellings and typographical errors may still be present Due to the previous pandemic, and the use of personal protective equipment (PPE) This may decrease voice recognition accuracy Inadvertent med peds errors may occur 01/24/2025 Benign prostatic hyperplasia without lower urinary tract symptoms (ICD-10 - N40.0) #Acute Concerns/Problem List: 01/24/2025 Will get lumbar spine films Suspect discogenic source, will likely need MRI Glycemic control is excellent, On metformin monotherapy MOLST/HCP filed Of note, some information is being carried forward from prior records for informational purposes only and is being cited so that efficiency, safety and quality of the patient's care is not compromised This note was prepared using voice recognition software and direct typing Please excuse inadvertent med peds or typing errors, or uncorrected word substitutions Although every attempt has been made by the provider to proofread this document, occasional misspellings and typographical errors may still be present Due to the previous pandemic, and the use of personal protective equipment (PPE) This may decrease voice recognition accuracy Inadvertent med peds errors may occurba 01/24/2025 Sensorineural hearing loss (SNHL) of left ear with unrestricted hearing of right ear (ICD-10 - H90.42) #Acute Concerns/Problem List: 01/24/2025 Will get lumbar spine films Suspect discogenic source, will likely need MRI Glycemic control is excellent, On metformin monotherapy MOLST/HCP filed Of note, some information is being carried forward from prior records for informational purposes only and is being cited so that efficiency, safety and quality of the patient's care is not compromised This note was prepared using voice recognition software and direct typing Please excuse inadvertent med peds or typing errors, or uncorrected word substitutions Although every attempt has been made by the provider to proofread this document, occasional misspellings and typographical errors may still be present Due to the previous pandemic, and the use of personal protective equipment (PPE) This may decrease voice recognition accuracy Inadvertent med peds errors may occurba 01/24/2025 Left lumbar radiculopathy (ICD-10 - M54.16) #Acute Concerns/Problem List: 01/24/2025 Will get lumbar spine films Suspect discogenic source, will likely need MRI Glycemic control is excellent, On metformin monotherapy MOLST/HCP filed Of note, some information is being carried forward from prior records for informational purposes only and is being cited so that efficiency, safety and quality of the patient's care is not compromised This note was prepared using voice recognition software and direct typing Please excuse inadvertent med peds or typing errors, or uncorrected word substitutions Although every attempt has been made by the provider to proofread this document, occasional misspellings and typographical errors may still be present Due to the previous pandemic, and the use of personal protective equipment (PPE) This may decrease voice recognition accuracy Inadvertent med peds errors may occurba Plan Of Treatment Pending Test Test Name Order Date X ray : Spines, lumbar 01/24/2025 Hemoglobin A1c 11/11/2018 Hemoglobin A1c 12/28/2018 Lipid Panel 12/28/2018 Lipid Panel 11/11/2018 Comp. Metabolic Panel (14) 12/28/2018 Comp. Metabolic Panel (14) 11/11/2018 CBC 12/28/2018 CBC 11/11/2018 Urinalysis 12/28/2018 Urinalysis 11/11/2018 EKG 01/19/2018 EKG 06/23/2018 25OH VITAMIN D 11/21/2020 25OH VITAMIN D 03/26/2023 CBC (COMPLETE BLOOD COUNT) 05/23/2020 CBC (COMPLETE BLOOD COUNT) 03/26/2023 CBC (COMPLETE BLOOD COUNT) 11/23/2019 COMPREHENSIVE METABOLIC PANEL 05/23/2020 COMPREHENSIVE METABOLIC PANEL 11/23/2019 COMPREHENSIVE METABOLIC PANEL 03/26/2023 HEMOGLOBIN A1C 09/24/2021 HEMOGLOBIN A1C 09/25/2022 HEMOGLOBIN A1C 03/26/2023 HEMOGLOBIN A1C 11/23/2019 HEMOGLOBIN A1C 11/21/2020 HEMOGLOBIN A1C 05/23/2020 LIPID PANEL 11/23/2019 LIPID PANEL 03/26/2023 LIPID PANEL 05/23/2020 MICROALBUMIN, URINE 03/26/2023 MICROALBUMIN, URINE 11/21/2020 PSA, SCREEN 03/26/2023 TSH 03/26/2023 URINALYSIS W/REFLEX CULTURE 03/26/2023 URINALYSIS, COMPLETE 11/23/2019 LIPID PANEL, STANDARD 05/20/2024 COMPREHENSIVE METABOLIC PANEL 05/20/2024 CBC (INCLUDES DIFF/PLT) 05/20/2024 URINALYSIS, COMPLETE 05/20/2024 HEMOGLOBIN A1c 05/20/2024 TSH W/REFLEX TO FT4 05/20/2024 VITAMIN D,25-OH,TOTAL,IA 05/20/2024 COMPLETE URINALYSIS 05/23/2020 MR Lumbar Spine WO 01/24/2025 Future Test Test Name Order Date 25OH VITAMIN D 09/20/2021 CBC (COMPLETE BLOOD COUNT) 09/20/2021 COMPREHENSIVE METABOLIC PANEL 09/20/2021 HEMOGLOBIN A1C 09/20/2021 LIPID PANEL 09/20/2021 MICROALBUMIN, URINE 09/20/2021 PSA, SCREEN 09/20/2021 TSH WITH REFLEX TO FT4 09/20/2021 URINALYSIS W/REFLEX CULTURE 09/20/2021 25OH VITAMIN D 09/24/2022 CBC (COMPLETE BLOOD COUNT) WITH DIFF COMPREHENSIVE METABOLIC PANEL 09/24/2022 HEMOGLOBIN A1C 09/24/2022 LIPID PANEL 09/24/2022 PSA, SCREEN 09/24/2022 TSH WITH REFLEX TO FT4 09/24/2022 URINALYSIS W/REFLEX CULTURE 09/24/2022 Next Appt Details Provider Name:YANICK HERNANDEZ, 05/24/2025 08:30:00 AM, [address] [facility], [facility] [address], [place], [address], Insurance Providers Payer Name Payer Address Payer Phone Subscriber Number Group Number Insured Name Patient Relationship to Insured Coverage Start Date Coverage End Date Medicare Part B [id number] [address] [place] [address] [id number] Romero Hernandez Self - patient is the [facility] [address] [place] [address] [id number] Romero Hernandez Self - patient is the insured Medical (General) History Medical History History ICD Code hypertension hyperlipidemia diabetes mellitus benign prostatic hyperplasia (BPH) Surgical History Surgery Date(Month/Year) umbilical hernia repair vasectomy cholecystectomy
--- OUTSIDE RECORDS SUMMARY | 2025-02-28 16:19 | XMS_ITS | Clinical Summary ---
Author Organization [facility] Address [address] [place] [address] Care Team Providers Care Dance Instructor Name Role Phone Anne Iyer MD Primary Care Provider [phone] Allergies No known active allergies Medications amLODIPine-jackie zepril (LOTREL) 5-10 mg per capsule TAKE 1 CAPSULE BY MOUTH EVERY DAY for 90 Active metFORMIN (GLUCOPHAGE) 500 MG tablet 1 tablet with a meal Orally twice a day for 90 days Active Multiple Vitamins-Minera ls (Multi Complete) Cap Take by mouth. A ctive omega-3 fatty acids (FISH OIL) 1000 MG Cap capsule 1 capsule. Active simvastatin (ZOCOR) 20 MG tablet TAKE 1 TABLET BY MOUTH EVERY DAY IN THE EVENING for 90 Active tamsulosin (FLOMAX) 0.4 MG capsule TAKE 1 CAPSULE BY MOUTH EVERY DAY for 90 Active ciprofloxacin-d exAMETHasone (CIPRODEX) 0.3-0.1 % otic suspensionIndic ations:Acute diffuse otitis externa of left ear Administer 4 drops into both ears 2 (two) times a day. 7.5 mL 4 Active Active Problems No known active problems Immunizations Immunization Administration Dates Next Due Influenza High-Dose Quadriva lent,(FLUZONE HIGH-DOSE), Perservative Free IM 0.7 mL 65 years and older 01/13/2021 Family History Medical History Relation Name Comments Cancer Father Relation Name Status Comments Father Social History Tobacco Use Types Packs/Day Years Used Date Smoking Tobacco: Never Passive Smoke Exposure: Never Smokeless Tobacco: Never Tobacco Cessation:Counseling Given: Not Answered Alcohol Use Standard Drinks/Week Comments Never 0 (1 standard drink = 0.6 oz pur e alcohol) Sex and Gender Information Value Date Recorded Sex Assigned at Not on file Legal Sex Male 1:51 PM EST Gender Identity Not on file Sexual Orientation Not on file Last Filed Vital Signs Vital Sign Reading Time Taken Comments Blood Pressure - - Pulse - - Temperature - - Respiratory Rate - - Oxygen Saturation - - Inhaled Oxygen Concentration - - Weight 87.1 kg (192 lb) 03/15/2024 9:39 AM EST Height 172.7 cm (5' 8 ) 03/15/2024 9:39 AM EST Body Mass Index 29.19 03/15/2024 9:39 AM EST Plan of Treatment Health Maintenance Due Date Last Done Comments Advance Care Planning 1955 Hepatitis C Virus Screening 1955 DTaP/Tdap/Td Vaccines (1 - Tdap) 1972 Colonoscopy 1998 Pneumococcal Vaccines 50+ (1 of 1 - PCV) 08/25/2003 RSV Vaccine 50 years and older and Patients (1 - Risk 50-74 years 1-dose series) 08/25/2003 Zoster (Shingles) Vaccine (1 of 2) 08/25/2003 Influenza Vaccine 10/08/2024 01/13/2021, 01/13/2021 COVID-19 Vaccine ( - 2024-2 6 season) 2024 Hepatitis B Vaccines Aged Out No long er eligible based on patient's age to complete this topic Insurance MEDICARE PART A & B [facility] SUPPLEMENT ONLY Care Teams Dance Instructor Relationship Specialty Start Date End Date Anne Iyer MD [address] [place] [address] PCP - General Internal Medicine 02/16/24
== END 2025-02-28 13:30 | disposition home or self-care (01) ==
LOC: HO.HPHYS 13:00
PROVIDERS: PCP Internal Medicine; Visit Provider Physician Assistant
DX: M54.16 Radiculopathy, lumbar region (principal); M47.816 Spondylosis without myelopathy or radiculopathy, lumbar region
CPT/HCPCS: 99203

== ENCOUNTER → 2025-02-28 13:00 | Outpatient (BNVA) | payer MEDICARE, OTHER, SELFPAY | PROVIDERS: PCP Internal Medicine; Visit Provider Physician Assistant | DX: M54.16 Radiculopathy, lumbar region (principal); M47.816 Spondylosis without myelopathy or radiculopathy, lumbar region | CPT/HCPCS: 99202 ==